=== PATIENT | male | born 1990 | race Two or more races ===

== ENCOUNTER 2016-11-13 16:19 | Emergency (ER) | payer BC ==
[2016-11-13] MEDS ORDERED: ONDANSETRON 4 MG TAB.RAPDIS PO ONE (16:34)
--- NOTE | 2016-11-13 16:34 | ER Document Report ---
ED Medical Screen (RME) - General Stated Complaint: VOMITING/DIARRHEA Notes: 26 yo male c/o nausea/vomiting/diarrhea, body aches, fatigue. + fever + hx/o HTN, took meds today but vomited shortly after Hx/o migraines and epilepsy TRAVEL OUTSIDE OF THE [place] IN LAST 30 DAYS: No - Related Data Allergies/Adverse Reactions: bupropion HCl [From Wellbutrin] Allergy (Verified 02/01/14 08:51) sumatriptan [From Imitrex] Allergy (Verified 02/01/14 08:51) sumatriptan succinate [From Imitrex] Allergy (Verified 02/01/14 08:51) Past Medical History - Past Medical History Cardiac Medical History: Reports: Hx Hypertension Pulmonary Medical History: Reports: Hx Asthma Neurological Medical History: Reports: Hx Migraine, Hx Seizures - Immunizations Immunizations up to date: Yes Hx Diphtheria, Pertussis, Tetanus Vaccination: Yes Physical Exam - Vital signs Vitals: Temp Pulse Resp BP Pulse Ox 97.5 F 94 18 162/105 H 100 11/13/16 16:29 11/13/16 16:29 11/13/16 16:29 11/13/16 16:29 11/13/16 16:29 Course - Vital Signs Vital signs: Temp Pulse Resp BP Pulse Ox 97.5 F 94 18 162/105 H 100 11/13/16 16:29 11/13/16 16:29 11/13/16 16:29 11/13/16 16:29 11/13/16 16:29
[2016-11-13 17:06] LABS: ABSOLUTE BASOPHILS # (AUTO) 0.1 10^3/uL (0.0-0.2); ABSOLUTE EOSINOPHILS # (AUTO) 0.1 10^3/uL (0.0-0.6); ABSOLUTE LYMPHOCYTES (AUTO) 2.8 10^3/uL (0.5-4.7); ABSOLUTE NEUT (AUTO) 6.3 10^3/uL (1.7-8.2); BASOPHILS % (AUTO) 0.5 % (0-2); EOSINOPHILS % (AUTO) 1.3 % (0-6); HEMATOCRIT 51.8 % (37.9-51.0); HEMOGLOBIN 17.2 g/dL (13.5-17.0); HGB HCT DIFFERENCE -0.2; MEAN CORPUSCULAR HEMOGLOBIN 29.8 pg (27.0-33.4); MEAN CORPUSCULAR HGB CONC 33.1 g/dL (32.0-36.0); MEAN CORPUSCULAR VOLUME 90 fl (80-97); MONOCYTES % (AUTO) 9.7 % (3-13); RED BLOOD COUNT 5.75 10^6/uL (4.35-5.55); RED CELL DISTRIBUTION WIDTH 13.3 % (11.5-14.0); SEGMENTED NEUTROPHILS % (AUTO) 61.5 % (42-78); WHITE BLOOD COUNT 10.3 10^3/uL (4.0-10.5)
[2016-11-13 17:21] LABS: APPEARANCE,URINE SLIGHTLY-CLOUDY; BILIRUBIN,URINE NEGATIVE (NEGATIVE); GLUCOSE, URINE NEGATIVE (NEGATIVE); KETONES,URINE NEGATIVE (NEGATIVE); LEUKOCYTE ESTERASE,URINE NEGATIVE (NEGATIVE); NITRITE,URINE NEGATIVE (NEGATIVE); PROTEIN,URINE 100 mg/dL (NEGATIVE); URINE SPECIFIC GRAVITY 1.034; UROBILINOGEN,URINE NEGATIVE mg/dL (<2.0)
[2016-11-13] MEDS ORDERED: PROMETHAZINE HCL 25 MG TABLET PO ONE (17:23)
[2016-11-13 17:28] LABS: ALANINE AMINOTRANSFERASE 46 U/L (21-72); ALBUMIN 4.7 g/dL (3.5-5.0); ALKALINE PHOSPHATASE 111 U/L (38-126); ANION GAP 18 (5-19); ASPARTATE AMINO TRANSFERASE 19 U/L (17-59); BILIRUBIN,TOTAL 0.7 mg/dL (0.2-1.3); BLOOD UREA NITROGEN 17 mg/dL (7-20); CARBON DIOXIDE 23 mmol/L (22-30); CHLORIDE 105 mmol/L (98-107); CREATININE RESULT 1.21 mg/dL (0.52-1.25); GLUCOSE 83 mg/dL (75-110); POTASSIUM 3.8 mmol/L (3.6-5.0); SODIUM 145.8 mmol/L (137-145); TOTAL PROTEIN 8.5 g/dL (6.3-8.2)
[2016-11-13] MEDS ORDERED: 1/2 NORMAL SALINE 1,000 ML IV ONE (20:37)
--- NOTE | 2016-11-13 20:37 | ER Document Report ---
ED GI/ - General Mode of Arrival: Ambulatory Information source: Patient TRAVEL OUTSIDE OF THE [place] IN LAST 30 DAYS: No - HPI Patient complains to provider of: Abdominal pain, Diarrhea, Vomiting Onset: Other - 5 days ago Location: LLQ, RUQ, RLQ Associated symptoms: Other - see above <DI RODNEY - Last Filed: 11/14/16 02:23> <RICH VILLEGAS - Last Filed: 11/14/16 04:03> - General Chief Complaint: Nausea/Vomiting Stated Complaint: VOMITING/DIARRHEA Notes: 26 year old male with history of COPD, migraines, and seizures presents to the ED complaining of RUQ (more severe) and bilateral lower quadrant abdominal pain that started 5 days ago. Patient is additionally complaining of vomiting and diarrhea and states that he has been vomiting brown colored liquid and has been having blood in his stool. Patient states that the last time he vomited was 40 minutes ago while in the waiting room. Patient took 4 immodium today and several zofran throughout the day to no relief. Patient denies any abdominal surgery. (DI RODNEY) - Related Data Allergies/Adverse Reactions: bupropion HCl [From Wellbutrin] Allergy (Verified 02/01/14 08:51) Sulfa (Sulfonamide Antibiotics) Allergy (Verified 11/13/16 16:36) sumatriptan [From Imitrex] Allergy (Verified 02/01/14 08:51) sumatriptan succinate [From Imitrex] Allergy (Verified 02/01/14 08:51) Past Medical History - General Information source: Patient - Social History Smoking Status: Never Smoker Chew tobacco use (# tins/day): No Frequency of alcohol use: None Drug Abuse: Marijuana Family History: CAD, CVA, DM, Hyperlipidemia, Hypertension, Malignancy Patient has suicidal ideation: No Patient has homicidal ideation: No - Past Medical History Cardiac Medical History: Reports: Hx Hypertension Pulmonary Medical History: Reports: Hx Asthma, Hx COPD Neurological Medical History: Reports: Hx Migraine, Hx Seizures - Immunizations Immunizations up to date: Yes Hx Diphtheria, Pertussis, Tetanus Vaccination: Yes <DI RODNEY - Last Filed: 11/14/16 02:23> Review of Systems - Review of Systems Constitutional: No symptoms reported EENT: No symptoms reported Cardiovascular: No symptoms reported Respiratory: No symptoms reported Gastrointestinal: See HPI, Abdominal pain - RUQ and bilateral lower quadrants, Diarrhea, Vomiting, Blood in vomit, Rectal bleeding Genitourinary: No symptoms reported Male Genitourinary: No symptoms reported Musculoskeletal: No symptoms reported Skin: No symptoms reported Hematologic/Lymphatic: No symptoms reported Neurological/Psychological: No symptoms reported -: Yes All other systems reviewed and negative <DI RODNEY - Last Filed: 11/14/16 02:23> Physical Exam - General General appearance: Alert In distress: None - HEENT Head: Normocephalic, Atraumatic Eyes: Normal Extraocular movements intact: Yes Pupils: PERRL Mucous membranes: Dry - Respiratory Respiratory status: No respiratory distress Breath sounds: Normal - Cardiovascular Rhythm: Regular Heart sounds: Normal auscultation - Abdominal Inspection: Normal Tenderness: Tender - LLQ tenderness to palpation - Back Back: Normal - Extremities General upper extremity: Normal inspection, Normal ROM General lower extremity: Normal inspection, Normal ROM - Neurological Neuro grossly intact: Yes Cognition: Normal Orientation: AAOx4 [place] Coma Scale Eye Opening: Spontaneous [place] Coma Scale Verbal: Oriented [place] Coma Scale Motor: Obeys Commands [place] Coma Scale Total: 15 Speech: Normal - Psychological Associated symptoms: Normal affect, Normal mood - Skin Skin Temperature: Warm Skin Moisture: Dry Skin Color: Normal <DI RODNEY - Last Filed: 11/14/16 02:23> Course - Laboratory Result Diagrams: 11/13/16 16:40 11/13/16 16:40 <DI RODNEY - Last Filed: 11/14/16 02:23> - Laboratory Result Diagrams: 11/13/16 16:40 11/13/16 16:40 <RICH VILLEGAS - Last Filed: 11/14/16 04:03> - Re-evaluation Re-evalutation: 11/13/16 22:30 Abdominal pain improved. No acute findings on blood work or CT. Patient will be discharged home with medication for pain and nausea. Stable for discharge. Return if any worsening or concerning symptoms. (RICH VILLEGAS) - Vital Signs Vital signs: Temp Pulse Resp BP Pulse Ox 97.2 F 84 16 145/91 H 96 11/14/16 01:21 11/14/16 01:21 11/14/16 01:21 11/14/16 01:21 11/14/16 01:21 (DI RODNEY) (RICH VILLEGAS) - Laboratory Laboratory results interpreted by me: 11/13/16 11/13/16 11/13/16 16:40 16:40 16:40 RBC 5.75 H Hgb 17.2 H Hct 51.8 H Sodium 145.8 H Total Protein 8.5 H Urine Protein 100 H (DI RODNEY) (RICH VILLEGAS) Discharge <DI RODNEY - Last Filed: 11/14/16 02:23> <RICH VILLEGAS - Last Filed: 11/14/16 04:03> - Discharge Clinical Impression: Abdominal pain Qualifiers: Abdominal location: unspecified location Qualified Code(s): R10.9 - Unspecified abdominal pain Vomiting Qualifiers: Vomiting type: unspecified Vomiting Intractability: non-intractable Nausea presence: with nausea Qualified Code(s): R11.2 - Nausea with vomiting, unspecified Diarrhea Qualifiers: Diarrhea type: unspecified type Qualified Code(s): R19.7 - Diarrhea, unspecified Condition: Stable Disposition: HOME, SELF-CARE Instructions: Abdominal Pain ([facility]), Vomiting ([facility]), Diarrhea, Nonspecific ([facility]) Scribe Attestation: 11/14/16 04:03 I personally performed the services described in the documentation, reviewed and edited the documentation which was dictated to the scribe in my presence, and it accurately records my words and actions. (RICH VILLEGAS) Scribe Documentation - Scribe Written by Nathan:: Nathan Elmore, 11/13/2016 20:53 acting as scribe for :: Karen <DI RODNEY - Last Filed: 11/14/16 02:23>
[2016-11-13] MEDS ORDERED: MORPHINE SULFATE 10 MG/ML INJ IV ONE (22:29)
[2016-11-14] MEDS ORDERED: ONDANSETRON ODT 4 MG TAB (6 TAB/DSPK) PO PRN (00:15)
[2016-11-14 01:24] VITALS: BP 145/91
== END 2016-11-14 01:24 | disposition home or self-care (01) ==
LOC: ER 16:19
DX: R10.11 Right upper quadrant pain (principal); R10.31 Right lower quadrant pain; R10.32 Left lower quadrant pain; J44.9 Chronic obstructive pulmonary disease, unspecified; K92.1 Melena; I10 Essential (primary) hypertension; J45.909 Unspecified asthma, uncomplicated; Z88.8 Allergy status to other drugs, medicaments and biological substances; Z88.2 Allergy status to sulfonamides; Z88.6 Allergy status to analgesic agent
CPT/HCPCS: 99284; 96361; 96374; 36415; 85025; 80053; 81001; 74177; S0119; J2270

== ENCOUNTER 2017-03-18 17:15 | Emergency (ER) | payer BC ==
[2017-03-18 18:43] VITALS: BP 157/102
== END 2017-03-18 19:51 | disposition left against medical advice (07) ==
LOC: ER 17:15
DX: Z53.21 Procedure and treatment not carried out due to patient leaving prior to being seen by health care provider (principal)

== ENCOUNTER 2017-07-28 19:57 | Emergency (ER) | payer BC ==
[2017-07-28 20:51] VITALS: BP 165/91
--- NOTE | 2017-07-28 21:09 | RADIOLOGY REPORT (SQ) ---
EXAM DESCRIPTION: CHEST PA/LAT COMPLETED DATE/TIME: 07/28/2017 8:59 pm REASON FOR STUDY: resp distress COMPARISON: 09/11/2014 EXAM PARAMETERS: NUMBER OF VIEWS: two views TECHNIQUE: Digital Frontal and Lateral radiographic views of the chest acquired. RADIATION DOSE: NA LIMITATIONS: none FINDINGS: LUNGS AND PLEURA: No opacities, masses or pneumothorax. No pleural effusion. MEDIASTINUM AND HILAR STRUCTURES: No masses or contour abnormalities. HEART AND VASCULAR STRUCTURES: Heart normal size. No evidence for failure. BONES: No acute findings. HARDWARE: None in the chest. OTHER: No other significant finding. IMPRESSION: NO SIGNIFICANT RADIOGRAPHIC FINDING IN THE CHEST. TECHNICAL DOCUMENTATION: JOB ID: [id number] [employer]- All Rights Reserved
== END 2017-07-28 23:00 | disposition left against medical advice (07) ==
LOC: ER 19:57
DX: Z53.9 Procedure and treatment not carried out, unspecified reason (principal); R06.2 Wheezing
CPT/HCPCS: 71020

== ENCOUNTER 2017-10-06 12:46 | Emergency (ER) | payer BC ==
[2017-10-06] MEDS ORDERED: ALBUTEROL SULFATE 0.083% NEB 2.5 MG/3 ML AMPUL NEB ONE (13:13)
[2017-10-06] MEDS ORDERED: PREDNISONE 20 MG TABLET PO ONE (13:14)
--- NOTE | 2017-10-06 13:14 | ER Document Report ---
ED Medical Screen (RME) - General Chief Complaint: Shortness Of Breath Stated Complaint: WHEEZING Time Seen by Provider: 10/06/17 13:13 Notes: Patient has a history of asthma. He states for 3 days he has been using his nebulizer and his inhaler as well as [id number] medications with no relief. He states he has cough congestion shortness of breath as well as right ear pain. TRAVEL OUTSIDE OF THE [place] IN LAST 30 DAYS: No - Related Data Allergies/Adverse Reactions: bupropion HCl [From Wellbutrin] Allergy (Verified 10/06/17 12:48) Sulfa (Sulfonamide Antibiotics) Allergy (Verified 10/06/17 12:48) sumatriptan [From Imitrex] Allergy (Verified 10/06/17 12:48) sumatriptan succinate [From Imitrex] Allergy (Verified 10/06/17 12:48) Home Medications: Current Home Medications Ipratropium/Albuterol Sulfate [Combivent Respimat Inhal [place]] 8 gm IH Q8HP PRN 10/06/17 [History] Past Medical History - Social History Chew tobacco use (# tins/day): No Frequency of alcohol use: Social Drug Abuse: Marijuana - Past Medical History Cardiac Medical History: Reports: Hx Hypertension Pulmonary Medical History: Reports: Hx Asthma, Hx COPD Neurological Medical History: Reports: Hx Migraine, Hx Seizures Renal/ Medical History: Denies: Hx Peritoneal Dialysis - Immunizations Immunizations up to date: Yes Hx Diphtheria, Pertussis, Tetanus Vaccination: Yes Physical Exam - Vital signs Vitals: Temp Pulse Resp BP Pulse Ox 97.7 F 111 H 22 H 140/87 H 98 10/06/17 12:52 10/06/17 12:52 10/06/17 12:52 10/06/17 12:52 10/06/17 12:52 Course - Vital Signs Vital signs: Temp Pulse Resp BP Pulse Ox 97.7 F 111 H 22 H 140/87 H 98 10/06/17 12:52 10/06/17 12:52 10/06/17 12:52 10/06/17 12:52 10/06/17 12:52
--- NOTE | 2017-10-06 14:56 | RADIOLOGY REPORT (SQ) ---
EXAM DESCRIPTION: CHEST PA/LAT COMPLETED DATE/TIME: 10/06/2017 1:59 pm REASON FOR STUDY: ocugh/sob COMPARISON: 07/28/2017 EXAM PARAMETERS: NUMBER OF VIEWS: two views TECHNIQUE: Digital Frontal and Lateral radiographic views of the chest acquired. RADIATION DOSE: NA LIMITATIONS: none FINDINGS: LUNGS AND PLEURA: No opacities, masses or pneumothorax. No pleural effusion. MEDIASTINUM AND HILAR STRUCTURES: No masses or contour abnormalities. HEART AND VASCULAR STRUCTURES: Heart normal size. No evidence for failure. BONES: No acute findings. HARDWARE: None in the chest. OTHER: No other significant finding. IMPRESSION: NO SIGNIFICANT RADIOGRAPHIC FINDING IN THE CHEST. TECHNICAL DOCUMENTATION: JOB ID: [id number] [employer]- All Rights Reserved
[2017-10-06 15:13] LABS: ABSOLUTE BASOPHILS # (AUTO) 0.1 10^3/uL (0.0-0.2); ABSOLUTE EOSINOPHILS # (AUTO) 0.4 10^3/uL (0.0-0.6); ABSOLUTE LYMPHOCYTES (AUTO) 2.9 10^3/uL (0.5-4.7); ABSOLUTE NEUT (AUTO) 6.3 10^3/uL (1.7-8.2); BASOPHILS % (AUTO) 0.6 % (0-2); HEMATOCRIT 47.3 % (37.9-51.0); HEMOGLOBIN 16.5 g/dL (13.5-17.0); HGB HCT DIFFERENCE 2.2; LYMPHOCYTES % (AUTO) 27.4 % (13-45); MEAN CORPUSCULAR HEMOGLOBIN 31.6 pg (27.0-33.4); MEAN CORPUSCULAR VOLUME 91 fl (80-97); MONOCYTES % (AUTO) 9.3 % (3-13); RED BLOOD COUNT 5.23 10^6/uL (4.35-5.55); RED CELL DISTRIBUTION WIDTH 13.3 % (11.5-14.0); SEGMENTED NEUTROPHILS % (AUTO) 58.7 % (42-78); WHITE BLOOD COUNT 10.7 10^3/uL (4.0-10.5)
[2017-10-06 15:43] LABS: ALANINE AMINOTRANSFERASE 29 U/L (21-72); ALBUMIN 4.4 g/dL (3.5-5.0); ALKALINE PHOSPHATASE 115 U/L (38-126); ANION GAP 13 (5-19); ASPARTATE AMINO TRANSFERASE 19 U/L (17-59); BILIRUBIN,DIRECT 0.2 mg/dL (0.0-0.4); BILIRUBIN,TOTAL 0.5 mg/dL (0.2-1.3); BLOOD UREA NITROGEN 11 mg/dL (7-20); CALCIUM 9.2 mg/dL (8.4-10.2); CARBON DIOXIDE 30 mmol/L (22-30); CHLORIDE 100 mmol/L (98-107); CREATININE RESULT 0.79 mg/dL (0.52-1.25); GLUCOSE 123 mg/dL (75-110); SODIUM 142.9 mmol/L (137-145)
--- NOTE | 2017-10-06 16:55 | ER Document Report ---
ED General - General Chief Complaint: Shortness Of Breath Stated Complaint: WHEEZING Time Seen by Provider: 10/06/17 13:13 Notes: Patient began having recurrent cough and congestion and wheezing Friday and is continued ever since. He is coughing up brown phlegm and actually seeing diffuse specks of blood today. Has had a low-grade fever. No vomiting or diarrhea. Non-smoker. TRAVEL OUTSIDE OF THE [place] IN LAST 30 DAYS: No - Related Data Allergies/Adverse Reactions: bupropion HCl [From Wellbutrin] Allergy (Verified 10/06/17 12:48) Sulfa (Sulfonamide Antibiotics) Allergy (Verified 10/06/17 12:48) sumatriptan [From Imitrex] Allergy (Verified 10/06/17 12:48) sumatriptan succinate [From Imitrex] Allergy (Verified 10/06/17 12:48) Home Medications: Current Home Medications Ipratropium/Albuterol Sulfate [Combivent Respimat Inhal [place]] 8 gm IH Q8HP PRN 10/06/17 [History] Past Medical History - Social History Smoking Status: Never Smoker Chew tobacco use (# tins/day): No Frequency of alcohol use: Social Drug Abuse: Marijuana Family History: CAD, CVA, DM, Hyperlipidemia, Hypertension, Malignancy Patient has suicidal ideation: No Patient has homicidal ideation: No - Past Medical History Cardiac Medical History: Reports: Hx Hypertension Pulmonary Medical History: Reports: Hx Asthma Neurological Medical History: Reports: Hx Migraine, Hx Seizures - Immunizations Immunizations up to date: Yes Hx Diphtheria, Pertussis, Tetanus Vaccination: Yes Review of Systems - Review of Systems Notes: REVIEW OF SYSTEMS: CONSTITUTIONAL : Denies fever. EENT: Denies eye, ear, nose or mouth or throat pain or other symptoms. Some nasal congestion, however. CARDIOVASCULAR: Denies chest pain. RESPIRATORY: See HPI. GASTROINTESTINAL: Denies abdominal pain or nausea, vomiting, or diarrhea. GENITOURINARY: Denies difficulty or painful urinating, urinary frequency, blood in urine. MUSCULOSKELETAL: Denies back or neck pain. Denies joint pain or swelling. SKIN: Denies rash or skin lesions. NEUROLOGICAL: Denies LOC or altered mental status. Denies headache. Denies sensory loss or motor deficits. ALL OTHER SYSTEMS REVIEWED AND NEGATIVE. Physical Exam - Vital signs Vitals: Temp Pulse Resp BP Pulse Ox 97.7 F 111 H 22 H 140/87 H 98 10/06/17 12:52 10/06/17 12:52 10/06/17 12:52 10/06/17 12:52 10/06/17 12:52 Interpretation: Tachycardic - Minor - Notes Notes: PHYSICAL EXAMINATION: GENERAL: Well-appearing, in no acute distress. Vital signs essentially normal with slight elevation of blood pressure. HEAD: Atraumatic, normocephalic. EYES: Pupils equal round and reactive to light, extraocular movements intact. ENT: oropharynx clear without exudates. Moist mucous membranes. NECK: Normal range of motion, supple. LUNGS: Breath sounds clear and equal bilaterally. No wheezes at this time. Patient had a nebulizer treatment when he arrived. Was also started on prednisone 60 mg p.o. upon arrival. HEART: Regular rate and rhythm without murmurs. ABDOMEN: Soft, nontender. No guarding or rebound. BACK: No tenderness throughout entire back. EXTREMITIES: Normal range of motion without pain. Negative Homans bilaterally. NEUROLOGICAL: Normal speech, normal gait. Normal sensory, motor, and reflex exams. Awake, alert, and oriented x3. Cranial nerves normal. PSYCH: Normal mood, normal affect. SKIN: Warm, dry, no rashes. Course - Re-evaluation Re-evalutation: 10/06/17 17:05 Explained to the patient that he is well past the window for giving Tamiflu. His chest x-ray does not show any pneumonia so he does not need an antibiotic. I will prescribe him prednisone to take in a tapering dose starting with 50 mg tomorrow and 10 mg less each day thereafter. Also been given a prescription for Vicodin for cough suppression. - Vital Signs Vital signs: Temp Pulse Resp BP Pulse Ox 97.7 F 111 H 22 H 140/87 H 98 10/06/17 12:52 10/06/17 12:52 10/06/17 12:52 10/06/17 12:52 10/06/17 12:52 - Laboratory Result Diagrams: 10/06/17 14:50 10/06/17 14:50 Laboratory results interpreted by me: 10/06/17 10/06/17 14:50 14:50 WBC 10.7 H Glucose 123 H 10/06/17 17:06 Positive influenza B test noted. - Diagnostic Test Radiology results interpreted by me: 10/06/17 17:06 Chest x-ray is normal. Discharge - Discharge Clinical Impression: Influenza B Condition: Stable Disposition: HOME, SELF-CARE Additional Instructions: Influenza What are conditions that should receive medical attention? The development of difficulty breathing. Lip color changes to blue or purple. Persistent vomiting and unable to keep liquids down with signs of dehydration such as: dizziness when standing, unable to urinate, or if child/infant is crying no tears are noticed. Is less responsive than normal or becomes confused. How do I decrease the spread of flu in my home? Taking care of the sick patient at home: Keep the sick person in a room separate from the common areas of the house. Keep the "sickroom" door closed. If the person with the flu needs to leave the home, they should cover their nose/mouth when coughing or sneezing and wear a disposable (surgical) mask if available. These masks may be available at your local pharmacy, medical supply and hardware store. If the sick person is in common areas of the house, have them wear a surgical mask. If possible, have the sick person use a separate bathroom that should be cleaned daily with a household disinfectant. If you are the caregiver: Avoid being face to face with the sick adult person as much as possible. Try to stay at least 6 feet away and wear a disposable surgical mask when possible. When holding small children who are sick, place their chin on your shoulder so that they will not cough in your face. Wash your hands after you touch the sick person or handle their tissues and laundry. Wear a mask if you leave home, as you may be infected from taking care of someone and not know it yet. Watch yourself and others in the home for flu symptoms and contact your doctor if symptoms occur. NOTE: Antiviral medication used to reduce the symptoms of the flu works only if taken within 48 hours, and best within 24 hours of symptom onset. Household Cleaning, laundry and waste disposal: Tissues and other disposable items used by the sick person should be thrown away in the trash. Wash your hands after touching these used items. No special waste disposal is required. Keep surfaces (especially bedside tables, bathroom surfaces, and toys for children) clean by wiping them down with a safe household disinfectant according to the directions on the product label. Per CDC advice, most people will not receive testing to confirm flu. Also based on the person's health history and onset of symptoms, not all patients will receive prescriptions for antiviral medications. If you have questions related to this, please ask your healthcare provider. For more information, you can call the Centers for Disease Control and Prevention (CDC) Hotline at 5-476-RZV-INFO This line is available in [place] and Arabic, 24 hours a day, 7 days a week. Or www.[employer] or www.cdc.gov Flu-Like Illness Home Instructions: The influenza virus infection can cause a wide rage of symptoms, including: Fever, cough, sore throat, body aches, headaches, chills, fatigue, with some patients reporting diarrhea and vomiting Like seasonal influenza A, H1N1 ("swine flu")in humans can vary in severity from mild to severe Severe illness with pneumonia, respiratory failure and even is possible Certain groups might be more likely to develop a severe illness from H1N1 infection. Sometimes bacterial infections may occur at the same time as or after infection with influenza viruses and lead to pneumonias, ear infections, or sinus infections. How Flu Spreads The main way that influenza viruses spread is through respiratory droplets of coughs and sneezes. This can happen when someone with the infection coughs or sneezes and the particles fly through the air and land on other people and surfaces. If the person covers their mouth and nose with their hand but does not wash their hands immediately, then these germs are passed onto the next object that they touch. People with Influenza A or suspected H1N1 (swine flu) who are cared for at home should: Check with their doctor about any special care that they might need if they are or have a health condition such as diabetes, heart disease, asthma or emphysema. Also, limit caregiver to one (if possible). women or those with chronic health conditions should not take care of the flu patient unless necessary. Check with their doctor about whether or not medications are needed that may lessen the symptoms of the flu. Stay at home until 24 hours fever free without the use of fever reducing medication. Get plenty of rest and avoid other healthy people in your home. Drink plenty of clear liquids to keep from getting dehydrated. Take medications like Tylenol (Acetaminophen), Advil/Motrin/Nuprin ( Ibuprofen) or Aleve (Naproxen) for fevers and aches. All children under the age of 18 years of age should not take aspirin or products containing aspirin (e.g. Pepto Bismol), as this can cause a rare serious illness called Ana Syndrome. Over the counter medications for flu and colds may help, but it is very important to follow the package directions. Remember that the medicine may help the symptoms, but it will not help prevent others from getting sick if they are around you. Cover coughs and sneezes using your bent arm. Clean hands with soap and water or an alcohol-based hand rub often, especially after using tissues to cough or sneeze. Encourage hand washing frequently for all people living in the home! The sick person should not have visitors other than caregivers. Encourage concerned loved ones to call instead of visit. Avoid close contact with others-do not go to work or school while sick. ASTHMA: You have been diagnosed as having asthma. This is a condition where there is episodic tightness in the bronchial tubes. Allergies, infections, and polluted or cold air may be contributing factors. Emergency treatment of a severe asthma attack may include adrenaline shots , or bronchodilator aerosol. You may feel lightheaded, have a decreased exercise tolerance and a rapid pulse for an hour or two. Rest and get plenty of fluids. Home treatment of asthma requires bronchodilator drugs. These can be administered by injection, inhalation, or by mouth. Antibiotics and corticosteroids may be required for some patients. You should avoid chemical fumes, dusts, pollens, and exercising in very cold or dry air. If you smoke, stop!! If you develop a fever, increased wheezing, chest pain, or severe shortness of breath, you should contact the doctor immediately. STEROID MEDICATION: You have been given an injection of or oral medicine of the cortisone/ steroid class. This medication is used to control inflammation or allergy. Elfego t is usually only given for a short period of time, until the acute process subsides. There are usually no side effects from short-term use of cortisone-like medications. Some persons feel an increased sense of well-being and are not sleepy at bedtime. Long-term use of cortisone medications is best avoided, unless required for a severe condition. If your condition does not remit, or relapses after the course of corticosteroid medication, you should consult your physician. INHALED BRONCHODILATORS: You have received treatment(s) of and/or prescription for an inhaled bronchodilator -- a medication which stimulates the airways in the lung to dilate. This improves the flow of air in asthma, bronchitis, and emphysema. These medicines have some similarity to adrenaline, and can cause similar side effects: shakiness, racing heart, and a sense of nervousness. These side effects decrease with time. Contact your doctor if these side effects are severe. Do not over-use the medicine. Too-frequent use of the inhaler may make it ineffective. Call your doctor if the inhaler is not controlling your symptoms at the prescribed doses. You have been prescribed Vicodin to take for the cough. Oral Narcotic Medication You have been given a prescription for pain control. This medication is a narcotic. It's best taken with food, as nausea can result if taken on an empty stomach. Don't operate machinery or drive within six hours of taking this medication. Do not combine this medicine with alcohol, or with any medication which can cause sedation (such as cold tablets or sleeping pills) unless you get permission from the physician. Narcotics tend to cause constipation. If possible, drink plenty of fluids and eat a diet high in fiber and fruits. Take [id number] Sudafed for the nasal and head congestion. The dosage is 30 mg up to 4 times a day as needed. FOLLOW-UP CARE: If you have been referred to a physician for follow-up care, call the physician s office for an appointment as you were instructed or within the next two days. If you experience worsening or a significant change in your symptoms, notify the physician immediately or return to the Emergency Department at any time for re-evaluation. Prescriptions: Hydrocodone/Acetaminophen [[place] 5-325 mg Tablet] 1 tab PO Q4HP PRN #15 tablet PRN Reason: Cough Prednisone [Deltasone 10 mg Tablet] 10 mg PO ASDIR PRN #15 tablet PRN Reason:
[2017-10-06 17:23] VITALS: BP 154/95
== END 2017-10-06 17:18 | disposition home or self-care (01) ==
LOC: ER 12:46
DX: J11.1 Influenza due to unidentified influenza virus with other respiratory manifestations (principal); R04.2 Hemoptysis; J45.909 Unspecified asthma, uncomplicated; I10 Essential (primary) hypertension; Z88.8 Allergy status to other drugs, medicaments and biological substances; Z88.2 Allergy status to sulfonamides; Z88.6 Allergy status to analgesic agent
CPT/HCPCS: 94640; 99285; 36415; 85025; 80053; 87804; 71020; J7512

== ENCOUNTER 2017-12-02 10:14 | Emergency (ER) | payer BC ==
[2017-12-02 11:27] VITALS: BP 144/96
[2017-12-02] MEDS ORDERED: BENZONATATE 100 MG CAPSULE PO ONE (11:31)
[2017-12-02] MEDS ORDERED: PREDNISONE 20 MG TABLET PO ONE (11:31)
--- NOTE | 2017-12-02 11:31 | ER Document Report ---
ED General - General Chief Complaint: Cough Stated Complaint: COUGH Time Seen by Provider: 12/02/17 11:19 Notes: 27-year-old male here with complaints of congestion runny nose sore throat cough productive of brown sputum body aches fevers chills shortness of breath wheezing over the past few days. He has been using Tylenol and his home nebulizer treatments with mild relief. His mother is sick with similar symptoms. Eating drinking urinating defecating per usual. He was diagnosed with influenza B several months ago. TRAVEL OUTSIDE OF THE [place] IN LAST 30 DAYS: No - Related Data Allergies/Adverse Reactions: bupropion HCl [From Wellbutrin] Allergy (Verified 12/02/17 10:16) Sulfa (Sulfonamide Antibiotics) Allergy (Verified 12/02/17 10:16) sumatriptan [From Imitrex] Allergy (Verified 12/02/17 10:16) sumatriptan succinate [From Imitrex] Allergy (Verified 12/02/17 10:16) Past Medical History - Social History Smoking Status: Never Smoker Frequency of alcohol use: Occasional Drug Abuse: None Family History: CAD, CVA, DM, Hyperlipidemia, Hypertension, Malignancy Patient has suicidal ideation: No Patient has homicidal ideation: No - Past Medical History Cardiac Medical History: Reports: Hx Hypertension Pulmonary Medical History: Reports: Hx Asthma, Hx COPD Neurological Medical History: Reports: Hx Migraine, Hx Seizures Renal/ Medical History: Denies: Hx Peritoneal Dialysis - Immunizations Immunizations up to date: Yes Hx Diphtheria, Pertussis, Tetanus Vaccination: Yes Review of Systems - Review of Systems Notes: See history of present illness for pertinent positive review of systems; otherwise all review of systems have been reviewed and are negative Physical Exam - Vital signs Vitals: Temp Pulse Resp BP Pulse Ox 98.7 F 128 H 24 H 120/64 100 12/02/17 10:30 12/02/17 10:30 12/02/17 10:30 12/02/17 10:30 12/02/17 10:30 - Notes Notes: PHYSICAL EXAMINATION: GENERAL: Appears as if he feels unwell but in no acute distress. HEAD: Atraumatic, normocephalic. EYES: Pupils equal round and reactive to light, extraocular movements intact, sclera anicteric, conjunctiva are normal. ENT: nares patent, oropharynx mild erythema without tonsillar swelling or exudates. Moist mucous membranes. NECK: Normal range of motion, supple without lymphadenopathy LUNGS: CTAB and equal. No wheezes rales or rhonchi. HEART: Tachycardic rate (likely secondary to recent nebulizer treatment and fever) and regular rhythm without murmurs ABDOMEN: Soft, no tenderness. No guarding, no rebound EXTREMITIES: Normal range of motion, no pitting edema. No cyanosis. NEUROLOGICAL: Cranial nerves grossly intact. Normal sensory/motor exams. PSYCH: Normal mood, normal affect. SKIN: Warm, Dry, normal turgor, no rashes or lesions noted Course - Re-evaluation Re-evalutation: 12/02/17 11:28 MEDICAL DECISION MAKING: Concern for upper respiratory infection, most likely viral I suspect his tachycardia today is due to his fever and recent DuoNeb treatments at home I will prescribe him prednisone Goyo and Earl Instructed patient on fever control with Tylenol and/or (if applicable) Motrin Also discussed keeping hydrated with water or Gatorade/Pedialyte Instructed follow-up PCP next day or few Patient understands and agrees to the plan of care - Vital Signs Vital signs: Temp Pulse Resp BP Pulse Ox 98.7 F 128 H 24 H 120/64 100 12/02/17 10:30 12/02/17 10:30 12/02/17 10:30 12/02/17 10:30 12/02/17 10:30 Discharge - Discharge Clinical Impression: Acute URI Condition: Good Disposition: HOME, SELF-CARE Additional Instructions: You were seen in the emergency department at [facility]. Finished antibiotics for your cough. Finish the prednisone for your wheezing. If you were given any sedating medications, be sure not to operate heavy machinery (example - driving) and be sure you are not too sedated to walk appropriately. Please followup with your primary physician in the next few days for further management/evaluation. Please return to the emergency department for worsening of symptoms or any symptom that you deem to be concerning or life-threatening. Thank you for allowing us to be part of your care. Prescriptions: Benzonatate [Tessalon Perle 100 mg Capsule] 100 mg PO Q8HP PRN #40 cap PRN Reason: Azithromycin [Zithromax 250 mg Tablet] 250 mg PO ASDIR PRN #6 tablet PRN Reason: Prednisone [Deltasone 20 mg Tablet] 3 tab PO DAILY 2 Days tablet
[2017-12-02] MEDS ORDERED: IBUPROFEN 600 MG TABLET PO ONE (11:32)
== END 2017-12-02 11:40 | disposition home or self-care (01) ==
LOC: ER 10:14
DX: J06.9 Acute upper respiratory infection, unspecified (principal); J02.9 Acute pharyngitis, unspecified; R05 Cough; R00.0 Tachycardia, unspecified; R09.89 Other specified symptoms and signs involving the circulatory and respiratory systems; I10 Essential (primary) hypertension; J44.9 Chronic obstructive pulmonary disease, unspecified; Z88.8 Allergy status to other drugs, medicaments and biological substances; Z88.2 Allergy status to sulfonamides; Z88.6 Allergy status to analgesic agent
CPT/HCPCS: 99283; J7512

== ENCOUNTER 2018-01-14 12:11 | Emergency (ER) | payer BC ==
[2018-01-14] MEDS ORDERED: PREDNISONE 20 MG TABLET PO ONE (12:41)
[2018-01-14] MEDS ORDERED: ALBUTEROL SULFATE 0.083% NEB 2.5 MG/3 ML AMPUL NEB ONE ×2 (12:41→13:33)
--- NOTE | 2018-01-14 13:16 | RADIOLOGY REPORT (SQ) ---
EXAM DESCRIPTION: CHEST PA/LAT COMPLETED DATE/TIME: 01/14/2018 1:05 pm REASON FOR STUDY: cough COMPARISON: Two-view chest 10/06/2017, 07/28/2017, 09/11/2014 EXAM PARAMETERS: NUMBER OF VIEWS: two views TECHNIQUE: Digital Frontal and Lateral radiographic views of the chest acquired. RADIATION DOSE: NA LIMITATIONS: none FINDINGS: LUNGS AND PLEURA: No opacities, masses or pneumothorax. No pleural effusion. MEDIASTINUM AND HILAR STRUCTURES: No masses or contour abnormalities. HEART AND VASCULAR STRUCTURES: Heart normal size. No evidence for failure. BONES: No acute findings. HARDWARE: None in the chest. OTHER: No other significant finding. IMPRESSION: NO SIGNIFICANT RADIOGRAPHIC FINDING IN THE CHEST. TECHNICAL DOCUMENTATION: JOB ID: [id number] [employer]- All Rights Reserved Reading location - IP/workstation name: [email or web address]
[2018-01-14] MEDS ORDERED: BUTALB/ACETAMINOPHEN/CAFFEINE 1 TAB EACH PO ONE (14:25)
--- NOTE | 2018-01-14 14:30 | ER Document Report ---
ED General - General Chief Complaint: Shortness Of Breath Stated Complaint: COUGH,WHEEZING,HEADACHE Time Seen by Provider: 01/14/18 12:41 Mode of Arrival: Ambulatory Information source: Patient Notes: Patient has a history of asthma. Reports that he has been wheezing and having no relief from his inhalers at home. He is also had a headache that is been diffuse and throbbing. Nothing makes it better or worse. Does not radiate. It is intermittent and moderate in intensity. He is felt somewhat short of breath and felt that his throat is been tight. He has had some coughing and some dark brown phlegm is been coming up. TRAVEL OUTSIDE OF THE [place] IN LAST 30 DAYS: No - Related Data Allergies/Adverse Reactions: bupropion HCl [From Wellbutrin] Allergy (Verified 12/02/17 10:16) Sulfa (Sulfonamide Antibiotics) Allergy (Verified 12/02/17 10:16) sumatriptan [From Imitrex] Allergy (Verified 12/02/17 10:16) sumatriptan succinate [From Imitrex] Allergy (Verified 12/02/17 10:16) Past Medical History - General Information source: Patient - Social History Smoking Status: Never Smoker Chew tobacco use (# tins/day): No Frequency of alcohol use: Social Drug Abuse: None Family History: CAD, CVA, DM, Hyperlipidemia, Hypertension, Malignancy Patient has suicidal ideation: No Patient has homicidal ideation: No - Past Medical History Cardiac Medical History: Reports: Hx Hypertension Pulmonary Medical History: Reports: Hx Asthma, Hx COPD Neurological Medical History: Reports: Hx Migraine, Hx Seizures Renal/ Medical History: Denies: Hx Peritoneal Dialysis - Immunizations Immunizations up to date: Yes Hx Diphtheria, Pertussis, Tetanus Vaccination: Yes Review of Systems - Review of Systems Constitutional: denies: Chills, Fever Cardiovascular: denies: Chest pain, Palpitations Respiratory: Cough, Short of breath -: Yes All other systems reviewed and negative Physical Exam - Vital signs Vitals: Temp Pulse Resp BP Pulse Ox 97.6 F 84 16 132/91 H 96 01/14/18 12:16 01/14/18 12:16 01/14/18 12:16 01/14/18 12:16 01/14/18 12:16 Interpretation: Normal - General General appearance: Appears well, Alert - HEENT Head: Normocephalic, Atraumatic Eyes: Normal Pupils: PERRL - Respiratory Respiratory status: No respiratory distress Chest status: Nontender Breath sounds: Nonproductive cough, Wheezing Chest palpation: Normal - Cardiovascular Rhythm: Regular Heart sounds: Normal auscultation Murmur: No - Abdominal Inspection: Normal Distension: No distension Bowel sounds: Normal Tenderness: Nontender Organomegaly: No organomegaly - Back Back: Normal, Nontender - Extremities General upper extremity: Normal inspection, Nontender, Normal color, Normal ROM , Normal temperature General lower extremity: Normal inspection, Nontender, Normal color, Normal ROM , Normal temperature, Normal weight bearing. No: Tawanna's sign - Neurological Neuro grossly intact: Yes Cognition: Normal Orientation: AAOx4 [place] Coma Scale Eye Opening: Spontaneous [place] Coma Scale Verbal: Oriented [place] Coma Scale Motor: Obeys Commands [place] Coma Scale Total: 15 Speech: Normal Motor strength normal: LUE, RUE, LLE, RLE Sensory: Normal - Psychological Associated symptoms: Normal affect, Normal mood - Skin Skin Temperature: Warm Skin Moisture: Dry Skin Color: Normal Course - Re-evaluation Re-evalutation: 01/14/18 14:27 Patient feels better after nebs and steroids - Vital Signs Vital signs: Temp Pulse Resp BP Pulse Ox 97.6 F 84 16 132/91 H 96 01/14/18 12:16 01/14/18 12:16 01/14/18 12:16 01/14/18 12:16 01/14/18 12:16 - Diagnostic Test Radiology reviewed: Image reviewed, Reports reviewed - No evidence of infiltrate or edema Discharge - Discharge Clinical Impression: Asthma, intermittent with acute exacerbation Qualifiers: Asthma severity: mild Qualified Code(s): J45.21 - Mild intermittent asthma with (acute) exacerbation Condition: Stable Disposition: HOME, SELF-CARE Instructions: Asthma ([facility]) Prescriptions: Butalb/Acetaminophen/Caffeine [Fioricet (50-325-40 mg) Tablet] 1 tab PO Q4HP PRN #30 tab PRN Reason: Prednisone 60 mg PO DAILY 5 Days #15 tablet Forms: Return to Work
[2018-01-14 15:01] VITALS: BP 136/84
== END 2018-01-14 15:03 | disposition home or self-care (01) ==
LOC: ER 12:11
DX: J45.21 Mild intermittent asthma with (acute) exacerbation (principal); R51 Headache; R06.02 Shortness of breath; R05 Cough; I10 Essential (primary) hypertension; J44.9 Chronic obstructive pulmonary disease, unspecified
CPT/HCPCS: 94640 ×2; 99285; 71046; J3490; J7512

== ENCOUNTER → 2018-06-09 | Outpatient (CLI) | payer BC ==
--- NOTE | 2018-06-10 13:51 | EEG PRO FEE REPORT ---
EEG INTERPRETATION PATIENT NAME: JANEE PERSON ROOM#: ORDER#: [id number] DATE OF STUDY: 06/09/2018 : 1990 REFERRING MD: NEREYDA HALL M.D. 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 This EEG was requested for seizures. EEG Interpretation This EEG was recorded in the awake and drowsy states. The awake EEG is characterized by a well organized background with a well developed and reactive posterior dominant rhythm of 12 Hz. Drowsiness is characterized by slowing of the background rhythms. Sleep was not obtained. Photic stimulation resulted in a good driving response. Hyperventilation was not performed. There were no epileptiform abnormalities. The EKG showed a regular rhythm. EEG Impression This EEG is normal in the awake and drowsy states. INTERPRETING PHYSICIAN: ZAID MARTINEZ M.D. /: JOHNATHAN TT: [id number] ID: [id number] /: [id number] TD: [id number] JOB: [id number] cc:Beronica ROMERO M.D. > MTDD
== END ==
LOC: NEURO 12:53
PROVIDERS: ATTEND Pediatrics
DX: G40.909 Epilepsy, unspecified, not intractable, without status epilepticus (principal); Z91.19 Patient's noncompliance with other medical treatment and regimen
CPT/HCPCS: 95819

== ENCOUNTER 2018-06-18 19:29 | Emergency (ER) | payer BC ==
[2018-06-18 19:41] VITALS: BP 145/87
--- NOTE | 2018-06-18 20:30 | ER Document Report ---
HPI - HPI Patient complains to provider of: skin burning sensation Onset: This afternoon Onset/Duration: Persistent Pain Level: 3 Context: 27-year-old male used some capsaicin cream on his back because of some low back pain and it started burning his skin. He took the capsaicin off but it is persisted to have a burning sensation and some erythema. He is wondering if he had an allergic reaction. There is no chest pain or shortness of breath. No swelling. Associated Symptoms: None Exacerbated by: Other - See above Relieved by: Denies Similar symptoms previously: No Recently seen / treated by doctor: No - ROS ROS below otherwise negative: Yes Systems Reviewed and Negative: Yes All other systems reviewed and negative Past Medical History - General Information source: Patient - Social History Smoking Status: Unknown if Ever Smoked Lives with: Family Family History: CAD, CVA, DM, Hyperlipidemia, Hypertension, Malignancy - Past Medical History Cardiac Medical History: Reports: Hx Hypertension Pulmonary Medical History: Reports: Hx Asthma, Hx COPD Neurological Medical History: Reports: Hx Migraine, Hx Seizures Renal/ Medical History: Denies: Hx Peritoneal Dialysis Surgical Hx: Negative - Immunizations Immunizations up to date: Yes Hx Diphtheria, Pertussis, Tetanus Vaccination: Yes Vertical Provider Document - CONSTITUTIONAL Agree With Documented VS: Yes Exam Limitations: No Limitations - INFECTION CONTROL TRAVEL OUTSIDE OF THE [place] IN LAST 30 DAYS: No - RESPIRATORY Respiratory: Breath Sounds Normal, No Respiratory Distress - CARDIOVASCULAR Cardiovascular: Regular Rate, Regular Rhythm - NEURO Level of Consciousness: Awake - DERM Notes: 5 by 20 cm horozontal pink area of macular intact skin across upper lumbar spine Course - Re-evaluation Re-evalutation: 06/19/18 I reviewed the Internet to see if there is any relief for the capsaicin and they said dairy products. The only dairy product I could find to uses a topical soothing agent was ice cream and I placed that on his back with an ABD pad over it. He stated it helped a lot. - Vital Signs Vital signs: Temp Pulse Resp BP Pulse Ox 97.9 F 74 14 145/87 H 98 06/18/18 19:40 06/18/18 19:40 06/18/18 19:40 06/18/18 19:40 06/18/18 19:40 Discharge - Discharge Clinical Impression: capsacin reaction Condition: Good Disposition: HOME, SELF-CARE Additional Instructions: do not use the capsacin cream anymore Dairy products will soothe the burn Referrals: LEIA RIDLEY, [Primary Care Provider] - Follow up as needed
== END 2018-06-18 20:37 | disposition home or self-care (01) ==
LOC: ER 19:29
DX: R20.8 Other disturbances of skin sensation (principal); T49.4X5A Adverse effect of keratolytics, keratoplastics, and other hair treatment drugs and preparations, initial encounter; I10 Essential (primary) hypertension; J44.9 Chronic obstructive pulmonary disease, unspecified
CPT/HCPCS: 99282

== ENCOUNTER 2019-04-15 18:13 | Emergency (ER) | payer BC ==
[2019-04-15] MEDS ORDERED: DIPHENHYDRAMINE HCL 50 MG/ML VIAL IV ONE (19:06)
[2019-04-15] MEDS ORDERED: METHYLPREDNISOLONE INJ 125 MG/2 ML SDV IV ONE (19:07)
[2019-04-15] MEDS ORDERED: FAMOTIDINE INJ/PF 20 MG/2 ML SDV IV ONE (19:07)
[2019-04-15] MEDS ORDERED: CLONIDINE HCL 0.2 MG TABLET PO ONE (19:08)
--- NOTE | 2019-04-15 20:03 | ER Document Report ---
ED Allergic Reaction - General Chief Complaint: Allergic Reaction Stated Complaint: SHORTNESS OF BREATH Time Seen by Provider: 04/15/19 19:05 Primary Care Provider: LEIA RIDLEY DO [Primary Care Provider] - Follow up as needed Information source: Patient TRAVEL OUTSIDE OF THE [place] 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 He found one in his food he picked up with his finger then touched his face. He says his his face began to swell around his eye and his right arm began to swell and itch. He took some Benadryl it did not help he came to the ER feeling short of breath and anxious. No cough no throat symptoms no wheezing noted speech is clear he is not drooling satting 98 200% on room air - Related Data Allergies/Adverse Reactions: bupropion HCl [From Wellbutrin] Allergy (Verified 12/02/17 10:16) Sulfa (Sulfonamide Antibiotics) Allergy (Verified 12/02/17 10:16) sumatriptan [From Imitrex] Allergy (Verified 12/02/17 10:16) sumatriptan succinate [From Imitrex] Allergy (Verified 12/02/17 10:16) Past Medical History - Social History Smoking Status: Never Smoker Family History: CAD, CVA, DM, Hyperlipidemia, Hypertension, Malignancy Patient has suicidal ideation: No Patient has homicidal ideation: No - Past Medical History Cardiac Medical History: Reports: Hx Hypertension, Other - Asthma Pulmonary Medical History: Reports: Hx Asthma, Hx COPD Neurological Medical History: Reports: Hx Migraine, Hx Seizures Renal/ Medical History: Denies: Hx Peritoneal Dialysis - Immunizations Immunizations up to date: Yes Hx Diphtheria, Pertussis, Tetanus Vaccination: Yes Review of Systems - Review of Systems Constitutional: No symptoms reported EENT: denies: Difficulty swallowing Cardiovascular: No symptoms reported Respiratory: Short of breath Gastrointestinal: No symptoms reported Genitourinary: No symptoms reported Skin: Rash Physical Exam - Vital signs Vitals: Temp Pulse Resp BP Pulse Ox 98.1 F 102 H 24 H 150/99 H 99 04/15/19 18:21 04/15/19 18:21 04/15/19 18:21 04/15/19 18:21 04/15/19 18:21 - Notes Notes: PHYSICAL EXAMINATION: GENERAL: Well-appearing, well-nourished and very anxious appearing. HEAD: Atraumatic, normocephalic. EYES: Pupils equal round and reactive to light, extraocular movements intact, sclera anicteric, conjunctiva are normal. ENT: nares patent, oropharynx clear without exudates. Moist mucous membranes tongue is normal speech is clear no drooling. Handling his secretions normally. NECK: Normal range of motion, supple without lymphadenopathy LUNGS: Breath sounds clear to auscultation bilaterally and equal. No wheezes rales or rhonchi lungs are very clear. No wheezing good air movement. No stridor.. HEART: Regular rate and rhythm without murmurs slightly tachycardic at 101 ABDOMEN: Soft, nontender, normoactive bowel sounds. No guarding, no rebound. No masses appreciated. EXTREMITIES: Normal range of motion, no pitting or edema. No cyanosis. NEUROLOGICAL: No focal neurological deficits. Moves all extremities spontaneously and on command. PSYCH: Normal mood, normal affect. SKIN: Warm, Dry, normal turgor, no rashes or lesions noted. No rash noted face is not swollen there is no rash to the face no rash to the arm. Course - Re-evaluation Re-evalutation: 04/15/19 20:03 Patient is calm down. He is resting comfortably. His blood pressure is coming down. He says he has difficult to control blood pressure anyways. He was due for his clonidine nightly dose. Sats are 9900% on room air. There is no distress now. I discussed with him he needs to follow-up with his family doctor this week for recheck. 04/15/19 20:27 Blood pressure is now 164/92. Patient is stable for discharge. No rash no wheezing no shortness of breath. All symptoms have resolved. - Vital Signs Vital signs: Temp Pulse Resp BP Pulse Ox 98.1 F 102 H 24 H 150/99 H 100 04/15/19 18:21 04/15/19 18:21 04/15/19 18:21 04/15/19 18:21 04/15/19 19:09 Discharge - Discharge Clinical Impression: Allergic reaction, Hypertension, Anxiety Condition: Stable Disposition: HOME, SELF-CARE Prescriptions: Diphenhydramine HCl [Benadryl 50 mg Capsule] 1 cap PO Q6 PRN #20 capsule PRN Reason: Methylprednisolone [Medrol Dosepack (4 mg/Tab) 21 Tab/Dosepak] 4 mg PO ASDIR PRN #21 tab.ds.pk PRN Reason: Ranitidine HCl [Zantac 150 mg Tablet] 150 mg PO BID #20 tablet Referrals: LEIA RIDLEY DO [Primary Care Provider] - Follow up as needed
[2019-04-15 21:11] VITALS: BP 164/92
== END 2019-04-15 21:14 | disposition home or self-care (01) ==
LOC: ER 18:13
DX: L23.6 Allergic contact dermatitis due to food in contact with the skin (principal); J44.9 Chronic obstructive pulmonary disease, unspecified; F41.9 Anxiety disorder, unspecified; R06.02 Shortness of breath; I10 Essential (primary) hypertension; Z79.899 Other long term (current) drug therapy; Z88.8 Allergy status to other drugs, medicaments and biological substances; Z88.2 Allergy status to sulfonamides; Z88.6 Allergy status to analgesic agent
CPT/HCPCS: 99283; 96374; 96375; J1200; J2930; S0028